=== PATIENT | female | born 1970 | race Caucasian/White ===

== ENCOUNTER 2024-11-24 21:21 | Emergency (ER) | payer BC, SELFPAY ==
[~2024-11-24] VITALS: Ht 170.2 cm; Wt 60.3 kg
[2024-11-24] MEDS ORDERED: HYDR-3713 PO (23:46)
[2024-11-25 00:06] VITALS: BP 130/60; TEMP 98.8; O2SAT 100
[2024-11-25] MEDS: NORCO 5/325MG TABLET (HOME DOSE PACK) PO ONE (00:19)
== END 2024-11-25 00:25 | disposition home or self-care (01) ==
LOC: M ED 21:21
DX: S00.01XA Abrasion of scalp, initial encounter (principal); S70.01XA Contusion of right hip, initial encounter; W11.XXXA Fall on and from ladder, initial encounter; Y92.009 Unspecified place in unspecified non-institutional (private) residence as the place of occurrence of the external cause; Y93.89 Activity, other specified; Y99.9 Unspecified external cause status; Z88.0 Allergy status to penicillin